=== PATIENT | female | born 1975 | race Caucasian/White ===

== ENCOUNTER 2017-03-01 14:17 | Emergency (ER) | payer MEDICAID, OTHER ==
[~2017-03-01] VITALS: Ht 167.6 cm; Wt 87.5 kg
[~2017-03-01 14:17] MED LIST: ABILIFY20 MG PO; ALBUTEROL0.09 MG/A3 IH; CALCIUM CARBON500 MG PO; CLONAZEPAM0.5 MG PO; DAILY VITE PO; DEPAKOTE500 M2 PO; DEPAKOTE500 MG PO; EFFEXOR XR75 MG PO; FLEXERIL10 MG PO; KLONOPIN0.5 M1 PO; MOTRIN800 MG PO; NORCO 10/325 MG1 TAB PO; POTASSIUM CHLO20 ME2 PO; PROAIR HFA0.09 MG/Ac IH; PROZAC20 M1; SEROQUEL; SEROQUEL400 MG PO; THERAFLU FLU &1 PDS PO; TRICOR145 MG PO; XANAX1 M1 PO; [UNRECOGNIZED DRUG - OTHER] PO; albuterol mdi
[2017-03-01 14:28] VITALS: BP 123/95
--- NOTE | 2017-03-01 14:42 | NUR ---
Patient ambulated to bed 04.
--- NOTE | 2017-03-01 14:44 | NUR ---
Dr. Sheth evaluating patient at bedside.
[2017-03-01] MEDS ORDERED: PHENAZOPYRIDINE 100 MG TAB PO ONE (14:45)
[2017-03-01] MEDS ORDERED: KETOROLAC 60 MG/2 ML VIAL IM ONE (14:50)
[2017-03-01] MEDS ORDERED: oxyCODONE/APAP 5/325 MG 1 TAB TAB PO ONE (14:50)
[2017-03-01] MEDS ORDERED: ONDANSETRON 4 MG ODT PO ONE (14:50)
--- NOTE | 2017-03-01 14:59 | NUR ---
PT STATES FLANK PAIN FOR 3 DAYS . DENIES V/D; SKIN IS PINK/WARM/DRY; AAOX4 WITH EVEN AND STEADY GAIT; LUNGS CLEAR BL; HR EVEN AND REGULAR; PT DENIES CP, SOB, OR COUGH AT THIS TIME; PATIENT STATES PAIN OF 10/10 AT THIS TIME; PATIENT POSITIONED FOR COMFORT; HOB ELEVATED; BEDRAILS UP X2; BED DOWN. ER MD MADE AWARE OF PT STATUS.
--- NOTE | 2017-03-01 15:12 | NUR ---
TEMP CHECKED 100.2, DR. PINEDO AWARE.
--- NOTE | 2017-03-01 15:19 | NUR ---
PT LEFT FOR CT SCAN VIA WHEELCHAIR PER TECH
--- NOTE | 2017-03-01 15:19 | NUR ---
Patient going to CT via wheelchair per tech.
--- NOTE | 2017-03-01 15:27 | NUR ---
Patient back from Ct via wheelchair per tech.
--- NOTE | 2017-03-01 15:50 | NUR ---
RECHECKED TEMP: 99.7. WILL CONTINUE TO MONITOR.
--- NOTE | 2017-03-01 15:51 | NUR ---
ORAL TEMP CHECKED 99.7, NAMAN LCONTINUE TO MONITOR.
[2017-03-01] MEDS ORDERED: cefTRIAXone 1,000 MG in LIDOCAINE 1% ED 2.1 ML IM ONE (16:00)
[2017-03-01] MEDS ORDERED: HYDROmorphone 1 MG/ML AMP IM ONE ×2 (16:00→19:00)
[2017-03-01] MEDS ORDERED: CIPROFLOXACIN 250 MG TAB PO ONE (16:05)
--- NOTE | 2017-03-01 17:20 | NUR ---
Patient discharged with v/s stable. Written and verbal after care instructions given and explained. Patient alert, oriented and verbalized understanding of instructions. Ambulatory with steady gait. SON PRESENT RIDE. All questions addressed prior to discharge. ID band removed. Patient advised to follow up with PMD. Rx of CIPRO, PHENAZOPYRIDINE HYDROCHLORIDE, ZOFRAN AND NORCO given. Patient educated on indication of medication including possible reaction and side effects. Opportunity to ask questions provided and answered.
[2017-03-01 17:23] VITALS: BP 115/67
[2017-03-01] MEDS ORDERED: HYDROmorphone 1 MG/ML AMP IVP ONE (18:25)
--- NOTE | 2017-03-01 19:03 | NUR ---
AWAITING RESULTS OF PELVIC US AT THIS TIME
--- NOTE | 2017-03-01 19:25 | NUR ---
REPORT GIVEN TO MARIE Currie FOR CONTINUITY OF CARE.
--- NOTE | 2017-03-03 14:45 | NUR ---
ADDENDUM:URINE CULTURE RESULT MDRO. REFERRED TO DR. JUAN. CHANGED CIPRO TO MACROBID 100 MG. 1 TAB PO BID X [address] IN TO [facility].PATIENT AWARE
== END 2017-03-01 17:20 | disposition home or self-care (01) ==
LOC: MED 14:17
DX: N12 Tubulo-interstitial nephritis, not specified as acute or chronic (principal); J45.909 Unspecified asthma, uncomplicated; Z79.899 Other long term (current) drug therapy
CPT/HCPCS: 74176; 76830; 76856; 81001; 81025; 87086; 87186; 96372; 99285; J0696; J1170; J1885; J2001; S0119

== ENCOUNTER 2017-03-11 20:53 | Emergency (ER) | payer OTHER ==
[~2017-03-11] VITALS: Ht 170.2 cm; Wt 81.6 kg
[2017-03-11 21:33] VITALS: BP 131/83
--- NOTE | 2017-03-11 23:41 | NUR ---
PT TAKEN TO OF
--- NOTE | 2017-03-11 23:48 | NUR ---
Dr. Jensen evaluating patient
[2017-03-12 00:32] VITALS: BP 130/82
--- NOTE | 2017-03-12 00:34 | NUR ---
Patient discharged with v/s stable. Written and verbal after care instructions given and explained. Patient alert, oriented and verbalized understanding of instructions. Ambulatory with steady gait. All questions addressed prior to discharge. ID band removed. Patient advised to follow up with PMD. Rx of NORCO 5MG-325MG given. Patient educated on indication of medication including possible reaction and side effects. Opportunity to ask questions provided and answered.
--- NOTE | 2017-03-12 18:04 | NUR ---
ADDENDUM: CALLED BACK PATIENT RE:XR RESULT LEFT FOOT.PATIENT RETURNING TO ER,SINCE SHE HAS NO PRIMARY DOCTOR
== END 2017-03-12 00:34 | disposition home or self-care (01) ==
LOC: MED 20:53
DX: S93.402A Sprain of unspecified ligament of left ankle, initial encounter (principal); J45.909 Unspecified asthma, uncomplicated; W07.XXXA Fall from chair, initial encounter; Y93.89 Activity, other specified; Y92.89 Other specified places as the place of occurrence of the external cause; Y99.8 Other external cause status

== ENCOUNTER 2017-03-12 18:24 | Emergency (ER) | payer OTHER ==
[~2017-03-12] VITALS: Ht 170.2 cm; Wt 81.6 kg
[~2017-03-12 18:24] MED LIST changes: -ABILIFY20 MG PO; +ALBU-136 IH; -ALBUTEROL0.09 MG/A3 IH; -CALCIUM CARBON500 MG PO; +CLON0.5T3 PO; -CLONAZEPAM0.5 MG PO; -DAILY VITE PO; -DEPAKOTE500 M2 PO; -DEPAKOTE500 MG PO; +DIVA500E1 PO; -EFFEXOR XR75 MG PO; -FLEXERIL10 MG PO; +IBUP-974 PO; -KLONOPIN0.5 M1 PO; -MOTRIN800 MG PO; -NORCO 10/325 MG1 TAB PO; -POTASSIUM CHLO20 ME2 PO; -PROAIR HFA0.09 MG/Ac IH; -PROZAC20 M1; +QUET400T PO; -SEROQUEL; -SEROQUEL400 MG PO; -THERAFLU FLU &1 PDS PO; -TRICOR145 MG PO; -XANAX1 M1 PO; -[UNRECOGNIZED DRUG - OTHER] PO; -albuterol mdi
--- NOTE | 2017-03-12 19:18 | NUR ---
PT TAKEN TO OF
--- NOTE | 2017-03-12 19:20 | NUR ---
PT BIB FAMILY C/O LT FOOT PAIN S/P SLIP NO FALL. CALL BACK LT FOOT PAIN. PA AT BEDISE FOR EVAL. ALL ORDR EXECUTED
[2017-03-12 19:25] VITALS: BP 135/89
--- NOTE | 2017-03-12 20:09 | NUR ---
PO MEDS GIVEN BY MARIE SAUL AT THIS TIME
--- NOTE | 2017-03-12 20:13 | NUR ---
Patient appears to be resting comfortably in bed. Vital Signs within normal limits. Respirations even and unlabored.
[2017-03-12 20:21] VITALS: BP 132/82
--- NOTE | 2017-03-12 20:22 | NUR ---
PAIN PRE OP PAIN MEDS 07/30.. POST PAIN MEDS PAIN NOW 10.
[2017-03-12] MEDS ORDERED: HYDROcodone/APAP 5/325 MG 1 TAB TAB PO ONE (20:40)
== END 2017-03-12 20:23 | disposition home or self-care (01) ==
LOC: MED 18:24
DX: S92.355A Nondisplaced fracture of fifth metatarsal bone, left foot, initial encounter for closed fracture (principal); F41.9 Anxiety disorder, unspecified; F31.9 Bipolar disorder, unspecified; J45.909 Unspecified asthma, uncomplicated; W19.XXXA Unspecified fall, initial encounter; Y93.89 Activity, other specified; Y92.89 Other specified places as the place of occurrence of the external cause; Y99.8 Other external cause status
CPT/HCPCS: 29515; 99283

== ENCOUNTER 2017-07-05 14:52 | Emergency (ER) | payer OTHER ==
[~2017-07-05] VITALS: Ht 170.2 cm; Wt 81.3 kg
[2017-07-05 14:59] VITALS: BP 129/91
[2017-07-05] MEDS ORDERED: IBUPROFEN 800 MG TAB PO ONE (16:15)
[2017-07-05] MEDS ORDERED: PHENAZOPYRIDINE 100 MG TAB PO ONE (16:15)
[2017-07-05] MEDS ORDERED: LEVOFLOXACIN 500 MG TAB PO ONE (16:15)
[2017-07-05 16:46] VITALS: BP 115/74
== END 2017-07-05 16:45 | disposition home or self-care (01) ==
LOC: MED 14:52
DX: N39.0 Urinary tract infection, site not specified (principal); K59.00 Constipation, unspecified; M54.40 Lumbago with sciatica, unspecified side; J45.909 Unspecified asthma, uncomplicated; F41.9 Anxiety disorder, unspecified; Z79.899 Other long term (current) drug therapy
CPT/HCPCS: 81002; 81025; 99284